=== PATIENT | female | born 1995 ===

== ENCOUNTER 2016-12-07 10:50 | Emergency (ER) | payer OTHER ==
--- NOTE | 2016-12-07 11:40 | C.PDOC ---
History Of Present Illness 21 yo female c/o fever , cough, congestion, and sore throat for 3 days. (+) body aches States she came here from [place] a week ago and symptoms started slowly after. Took tylenol, last at 3 am. (-) chest pain (-) abdominal pain (-) symptoms. Time Seen by Provider: 12/07/16 11:10 Chief Complaint (Nursing): Flu-like Symptoms History Per: Patient History/Exam Limitations: no limitations Onset/Duration Of Symptoms: Days Current Symptoms Are (Timing): Still Present Associated Symptoms: Sore Throat, Cough Past Medical History Reviewed: Historical Data, Nursing Documentation, Vital Signs Vital Signs: Last Vital Signs Temp 99.1 F 12/07/16 13:01 Pulse 109 H 12/07/16 13:01 Resp 20 12/07/16 13:01 BP 99/63 L 12/07/16 13:01 Pulse Ox 98 12/07/16 13:06 Family History: States: No Known Family Hx - Social History Hx Alcohol Use: No Hx Substance Use: No - Immunization History Hx Tetanus Toxoid Vaccination: No Hx Influenza Vaccination: No Hx Pneumococcal Vaccination: No Review Of Systems Except As Marked, All Systems Reviewed And Found Negative. Constitutional: Positive for: Fever. Negative for: Chills ENT: Positive for: Nose Congestion Cardiovascular: Negative for: Chest Pain Respiratory: Positive for: Cough Gastrointestinal: Negative for: Nausea, Vomiting, Abdominal Pain Genitourinary: Negative for: Dysuria, Frequency Skin: Negative for: Rash Physical Exam - Physical Exam Appears: Non-toxic, No Acute Distress Skin: Warm, Dry, Rash (Acne vulgaris (pt notes : 3 + months)) Head: Atraumatic, Normacephalic Eye(s): bilateral: Normal Inspection, PERRL, EOMI Ear(s): Bilateral: Normal Nose: Discharge ((+) congestion) Oral Mucosa: Moist Throat: Erythema, No Exudate Neck: Normal ROM, Supple Chest: Symmetrical Cardiovascular: Rhythm Regular Respiratory: Normal Breath Sounds, No Rales, No Rhonchi, No Wheezing Gastrointestinal/Abdominal: Soft, No Tenderness, No Guarding, No Rebound Neurological/Psych: Oriented x3, Normal Speech, Normal Cognition ED Course And Treatment O2 Sat by Pulse Oximetry: 98 (RA) Pulse Ox Interpretation: Normal Progress Note: On re-evaluation, pt notes she feels much better. She had no body aches. No back pain. Discussed hematuria, pt notes she is just finishing her menses. Insturcted to recheck in in a couple of days. Abd soft, non tender. Pt is asymptomatic. Instructed to follow up with clinic in 1-2 days or return to eR if symptoms persist or worsen. Reevaluation Time: 12:07 Reassessment Condition: Improved Disposition - Disposition Referrals: [facility] [Outside] Disposition: HOME/ ROUTINE Disposition Time: 13:04 Condition: STABLE Additional Instructions: Follow up with primary medical doctor in 1-3 days without fail for further evaluation. Take medications as prescribed. Return to the emergency department at any time if symptoms persist or worsen. 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 - Scribe Statement The provider has reviewed the documentation as recorded by the Scribbenjamin Rausch All medical record entries made by the Lynn were at my direction and personally dictated by me. I have reviewed the chart and agree that the record accurately reflects my personal performance of the history, physical exam, medical decision making, and the department course for this patient. I have also personally directed, reviewed, and agree with the discharge instructions and disposition.
--- NOTE | 2016-12-07 11:55 | RAD ---
HISTORY: fever uri COMPARISON: No prior. TECHNIQUE: Chest PA and lateral FINDINGS: LUNGS: No active pulmonary disease. PLEURA: No significant pleural effusion identified. No pneumothorax apparent. CARDIOVASCULAR: Normal. OSSEOUS STRUCTURES: No significant abnormalities. VISUALIZED UPPER ABDOMEN: Normal. OTHER FINDINGS: None. IMPRESSION: No active disease.
[2016-12-07 12:04] LABS: RBC URINE 33 /hpf (0-3); URINE BILIRUBIN NEGATIVE (NEGATIVE); URINE BLOOD 2+ (NEGATIVE); URINE COLOR Yellow (YELLOW); URINE GLUCOSE (UA) NORMAL (Normal); URINE KETONE 1+ mg/dL (NEGATIVE); URINE LEUKOCYTE ESTERASE NEG Leu/uL (Negative); URINE PROTEIN 1+ mg/dL (NEGATIVE); URINE UROBILINOGEN NORMAL mg/dL (0.2-1.0); WBC URINE 2 /hpf (0-5)
[2016-12-07 13:03] VITALS: BP 99/63; PULSE 109; RESP 20; TEMP 99.1
[2016-12-07 13:06] VITALS: O2SAT 98
== END 2016-12-07 13:13 | disposition home or self-care (01) ==
LOC: C.ER 10:50
DX: J02.9 Acute pharyngitis, unspecified (principal)

== ENCOUNTER 2016-12-09 11:20 | Observation (INO) | payer OTHER ==
[2016-12-09] MEDS ORDERED: Sodium Chloride 0.9% 1,000 ML IV ONE (12:01)
[2016-12-09] MEDS ORDERED: Albuterol 0.083% Inhal Sol (2.5 mg/3 mL) UD IH STA (12:03)
[2016-12-09 12:04] LABS: RBC URINE 17 /hpf (0-3); URINE BACTERIA RARE (<OCC); URINE BILIRUBIN NEGATIVE (NEGATIVE); URINE COLOR Yellow (YELLOW); URINE GLUCOSE (UA) NORMAL (Normal); URINE KETONE 1+ mg/dL (NEGATIVE); URINE LEUKOCYTE ESTERASE NEG Leu/uL (Negative); URINE PROTEIN NEGATIVE (NEGATIVE); URINE UROBILINOGEN NORMAL mg/dL (0.2-1.0); WBC URINE 6 /hpf (0-5)
[2016-12-09] MEDS ORDERED: Sodium Chloride 0.9% 250 ML IV ONE (12:07)
[2016-12-09 12:08] LABS: URINE BLOOD 1+ (NEGATIVE)
--- NOTE | 2016-12-09 12:08 | C.PDOC ---
History Of Present Illness 21 y/o female returns to ER for evaluation of URI symptoms for 4 days. Patient reports she recently arrived from [place] and c/o nasal congestion, sore throat, and productive cough with clear sputum. Patient was seen for similar complaints in this ER 2 days ago, received Ibuprofen and amoxicillin, w/o improvement. Patient states, developed generalized weakness and notes throat pain has since gotten worse. Otherwise, denies chills, severe headache, dizziness, rash, neck pain, visual changes, drooling, chest pain, SOB, dyspnea, palpitation, hematemesis, melena, back pain, UTI sx, diarrhea, or other associated symptoms. Time Seen by Provider: 12/09/16 11:33 Chief Complaint (Nursing): GI Problem History Per: Patient History/Exam Limitations: no limitations Onset/Duration Of Symptoms: Days Current Symptoms Are (Timing): Worse Sick Contacts (Context): None Associated Symptoms: Sore Throat, Cough. denies: Fever, Sputum, Neck Pain, Nausea, Vomiting, Diarrhea Ear Symptoms: Bilateral: None Recent travel outside of the [place]: Yes (recently arrived from [place]) Past Medical History Reviewed: Historical Data, Nursing Documentation, Vital Signs Vital Signs: Last Vital Signs Temp 100.4 F H 12/09/16 16:19 Pulse 121 H 12/09/16 16:06 Resp 20 12/09/16 14:34 BP 107/63 12/09/16 16:06 Pulse Ox 98 12/09/16 16:53 - Medical History PMH: No Chronic Diseases Family History: States: Unknown Family Hx - Social History Hx Alcohol Use: No Hx Substance Use: No - Immunization History Hx Tetanus Toxoid Vaccination: No Hx Influenza Vaccination: No Hx Pneumococcal Vaccination: No Review Of Systems Except As Marked, All Systems Reviewed And Found Negative. Constitutional: Positive for: Fever. Negative for: Chills ENT: Positive for: Throat Pain Cardiovascular: Negative for: Chest Pain, Palpitations Respiratory: Positive for: Cough. Negative for: Shortness of Breath, Sputum, Wheezing Gastrointestinal: Negative for: Nausea, Vomiting Skin: Negative for: Rash Neurological: Negative for: Headache, Dizziness Physical Exam - Physical Exam Appears: Well, Non-toxic, No Acute Distress Skin: Normal Color, Warm, Dry, No Rash Head: Normacephalic Eye(s): bilateral: PERRL Ear(s): Bilateral: Normal Nose: No Flaring, Discharge (scant clear) Oral Mucosa: Moist, No Drooling Tongue: Normal Appearing, No Lesions Lips: Normal Appearing, No Lesions Throat: Erythema (mild pharyngeal erythema bilaterally), No Exudate, No Drooling , Other (no swelling) Neck: Normal ROM, Supple, Other ((-) meningeal sign) Chest: Symmetrical Cardiovascular: Rhythm Regular, No Murmur, No JVD Respiratory: No Decreased Breath Sounds, No Accessory Muscle Use, No Rales, No Rhonchi, No Stridor, No Wheezing Gastrointestinal/Abdominal: Soft, No Tenderness, No Guarding, No Rebound Back: No CVA Tenderness Extremity: Normal ROM, No Pedal Edema, No Deformity Neurological/Psych: Oriented x3, Normal Speech, Normal Cognition ED Course And Treatment - Laboratory Results Result Diagrams: 12/09/16 12:17 12/09/16 12:17 O2 Sat by Pulse Oximetry: 98 (RA) Pulse Ox Interpretation: Normal - Other Rad CXR X-Ray: Interpreted by Me, Viewed By Me Interpretation: reator : Sue Banerjee MD. Dictator : Events Director : Management And Budget Analyst : Sue Banerjee MD. Approver2 : Report Date : 12/09/2016 12: 21:18. My Comment : . HISTORY: cough. COMPARISON: Chest x-ray performed 12/07/16. TECHNIQUE: Chest PA and lateral. FINDINGS: LUNGS: No focal consolidation. PLEURA: No significant pleural effusion identified. No definite pneumothorax . CARDIOVASCULAR: The cardiomediastinal silhouette appears within normal limits of size. OSSEOUS STRUCTURES: No acute osseous abnormality identified. VISUALIZED UPPER ABDOMEN: Unremarkable. OTHER FINDINGS: None. IMPRESSION: No focal consolidation, significant pleural effusion, or definite pneumothorax identified. Progress Note: CxR, bloodwork, urinalysis ordered. Treated with albuterol neb, solumedrol, Zofran, and IV fluids. On re-evaluation, pt reports, " feels much better". Afebrile, hemodynamicaly stable. Non-toxic. Tolerate Po well in ED. Neck: Supple, (-) meningeal sign. ENT: gary cute finidngs. uvula m idline, no edema. Lungs: CTA B/L, BS equal B/L. Abd: benign. Back: (-) CVA tenderness. Neuorlogicaly intact. Blood work review and appears noraml. Rapid strep, INfluenza performed few days ago and appears negative,. CXR repeated- normal study. Pt has clinical findings c/w viral illness. Pt advised continue abx as initiated. ref. to F/u wit PMD in 2-3 days for re-eval. return to ED if any worsening or new changes. ED OBSERVATION Discharge: Yes Date of observation admission: 12/09/16 Time of observation admission: 12:10 - Observation admission statement Patient is being placed in observation because:: fever, N/V, throat pain - Goals of Observation Goals of observation are:: Diagnostics, imaging, sx tx, re-eval - Progress Note Progress Note: 12/09/16 At 14:37,resting comfortably in bed, not in any apparent distress. PulseOx 99% RA Neck: (-)supple, (-) meningeal sign Lungs: CTA B/L, BS equal B/L Abd: benign, (-) guarding, (-) rebound. Neuorlogicaly intact. Diagnostics review and appears without acute abnormalities. HYdration, sx tx ordered. At 15:49, resting comfortably in bed, not in any apparent distress. PulseOx 99% RA Neck: (-)supple, (-) meningeal sign Lungs: CTA B/L, BS equal B/L Abd: benign, (-) guarding, (-) rebound. Neuorlogicaly intact. CXR- normal study AT 16:14, On re-evaluation, pt reports, " feels better". Awake, smiling, not in any apparent distress. Non-toxic, hemodynamicaly stable. Tolerate Po well in ED. Neck: Supple, (-) meningeal sign, (-) JVD. ENT: no acute findings Lungs: CTA B/L, B/S equal B/L ABd: benign, (-) guarding, (-) rebound, (-) localized tenderness. Back: (-) CVA tenderness. Case discussed with ED attending , diagnostics and imaging review and appear without acute abnormalities. Pt has clinical findings c/w viral illness. Pt advised continue abx as initiated, fluids. ref. to f/u with PM DIn 2-3 days for re-eval. return to ED if any worsening or new changes. 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 - Scribe Statement The provider has reviewed the documentation as recorded by the Scribe SM All medical record entries made by the Scribe were at my direction and personally dictated by me. I have reviewed the chart and agree that the record accurately reflects my personal performance of the history, physical exam, medical decision making, and the department course for this patient. I have also personally directed, reviewed, and agree with the discharge instructions and disposition.
--- NOTE | 2016-12-09 12:23 | RAD ---
HISTORY: cough COMPARISON: Chest x-ray performed 12/07/16 TECHNIQUE: Chest PA and lateral FINDINGS: LUNGS: No focal consolidation. PLEURA: No significant pleural effusion identified. No definite pneumothorax . CARDIOVASCULAR: The cardiomediastinal silhouette appears within normal limits of size. OSSEOUS STRUCTURES: No acute osseous abnormality identified. VISUALIZED UPPER ABDOMEN: Unremarkable. OTHER FINDINGS: None. IMPRESSION: No focal consolidation, significant pleural effusion, or definite pneumothorax identified.
[2016-12-09] MEDS ORDERED: Albuterol 0.083% Inhal Sol (2.5 mg/3 mL) UD ONE (12:24)
[2016-12-09 12:26] LABS: BASO % 0.4 % (0.0-2.0); EOS % 0.2 % (0.0-4.0); LYMPH # 0.9 K/uL (1.0-4.3); LYMPH % 12.9 % (20.0-40.0); MEAN CELL VOLUME 92.3 fL (81.0-99.0); MEAN CORPUSCULAR HEMOGLOBIN 30.5 pg (27.0-31.0); MEAN PLATELET VOLUME 9.4 fL (7.2-11.7); MONO # 0.3 K/uL (0.0-0.8); RED CELL DISTRIBUTION WIDTH 14.8 % (11.5-14.5); WHITE BLOOD COUNT 7.3 K/uL (4.8-10.8)
[2016-12-09 12:35] LABS: CHLORIDE 101 mmol/L (98-107); POTASSIUM 3.8 mmol/L (3.6-5.2); SODIUM 140 mmol/L (132-148)
[2016-12-09 12:38] LABS: CARBON DIOXIDE 23 mmol/L (22-30); GFR AFRICAN-AMERICAN > 60
[2016-12-09 12:39] LABS: BLOOD UREA NITROGEN 7 mg/dL (7-17); GLUCOSE,RANDOM 97 mg/dL (65-105)
[2016-12-09 15:45] LABS: INTRACELLULAR PARASITE NEGATIVE (NEGATIVE)
[2016-12-09 16:22] VITALS: O2SAT 98
[2016-12-09 17:06] VITALS: BP 105/72; PULSE 117; RESP 18; TEMP 99.8
== END 2016-12-09 16:52 | disposition home or self-care (01) ==
LOC: C.ER 11:20 → C.9OBSV 12:11
PROVIDERS: ADMIT Emergency Medicine; ATTEND Emergency Medicine
DX: B34.9 Viral infection, unspecified (principal)
CPT/HCPCS: 71020; 80048; 81001; 84703; 85025; 87040; 87207; 94640; 96360; 96374; G0378; J2405; J2930; J7040